=== PATIENT | female | born 1995 | race Caucasian/White ===

== ENCOUNTER 2019-01-08 01:22 | Emergency (ER) | payer BC ==
[~2019-01-08] VITALS: Ht 162.6 cm; Wt 56.8 kg
[2019-01-08 01:32] VITALS: BP 121/78; TEMP 98.7
[2019-01-08] MEDS ORDERED: NEXPLANON68 MG ID (01:36)
[2019-01-08] MEDS ORDERED: NORCO 325 MG-51 TAB PO (03:01)
[2019-01-08] MEDS ORDERED: AMOXICILLIN 8751 TAB PO (03:01)
[2019-01-08 03:10] VITALS: PULSE 102
== END 2019-01-08 03:10 | disposition home or self-care (01) ==
LOC: COL.ER 01:22
DX: S61.011A Laceration without foreign body of right thumb without damage to nail, initial encounter (principal); Z23 Encounter for immunization; W54.0XXA Bitten by dog, initial encounter